=== PATIENT | female | born 1990 ===

== ENCOUNTER 2024-12-16 10:32 | Emergency (ER) | payer OTHER ==
[~2024-12-16] VITALS: Ht 157.5 cm; Wt 72.6 kg
[2024-12-16] MEDS ORDERED: LIDOCAINE HCL 1%/EPINEPHRINE 10 ML VIAL IJ ONE (12:00)
[2024-12-16] MEDS ORDERED: DIPHTH,PERTUSS(ACELL),TET VAC 0.5 ML VIAL IM ONE (13:00)
== END 2024-12-16 13:02 | disposition home or self-care (01) ==
LOC: ER 10:32
DX: S81.822A Laceration with foreign body, left lower leg, initial encounter (principal); W18.39XA Other fall on same level, initial encounter; Y93.89 Activity, other specified; Y92.89 Other specified places as the place of occurrence of the external cause
CPT/HCPCS: 12001; 90471; 90714; J1670